=== PATIENT | male | born 1950 | race Caucasian/White ===

== ENCOUNTER → 2016-12-08 | Outpatient (CLI) | payer BC ==
[~2016-12-08] MED LIST: ASPI81TA28 PO; BNC40 PO; CHOL100010 PO; CIPR-255 PO; FSM70 PO; GLC/500 PO; HYDR-5688 PO; LPR25 PO; LPRUNK PO; OXYC7.5T65 PO; PHEN-775 PO; PRED20TA PO; WLLSR/200 PO
--- NOTE | 2016-12-08 12:53 | DIAGNOSTIC IMAGING REPORT ---
RIGHT FOOT MIN 3 VIEWS ROUTINE CLINICAL HISTORY: Right foot pain COMPARISON: None. DISCUSSION: No acute fractures are visualized. There is a tiny plantar calcaneal spur. There is a minor hallux valgus deformity. There are degenerative changes present the level the first tarsal metatarsal joint and first metatarsal phalangeal joint. Degenerative changes are also present the level of the second and third tarsometatarsal joints. IMPRESSION: 1. Degenerative changes at the first second and third tarsometatarsal joints 2. Degenerative changes at the level the first metatarsal phalangeal joint 3. No acute fractures Electronically signed by: Robert Covington M.D. 12/08/2016 12:51 PM Dictated Date/Time: 12/08/2016 12:50 PM
== END | disposition home or self-care (01) ==
LOC: C.RAD1850 12:18
PROVIDERS: ATTEND Family Medicine
DX: M79.671 Pain in right foot (principal)

== ENCOUNTER → 2017-02-27 | Outpatient (CLI) | payer BC | END | disposition home or self-care (01) | LOC: C.MAMM 10:57 | PROVIDERS: ATTEND Family Medicine | DX: M81.0 Age-related osteoporosis without current pathological fracture (principal) ==

== ENCOUNTER → 2017-04-30 | Outpatient (CLI) | payer BC ==
--- NOTE | 2017-04-30 16:39 | DIAGNOSTIC IMAGING REPORT ---
ABDOMEN AND PELVIS CT WITHOUT CONTRAST CT DOSE: 2131.80 mGy.cm HISTORY: Flank pain. TECHNIQUE: Multiaxial CT images of the abdomen and pelvis were performed without the use of intravenous and oral contrast according to the standard department stone protocol. COMPARISON STUDY: Abdomen and pelvis CT 04/09/2009. FINDINGS: Small focal linear density base of the left lower lobe. Mild dependent changes seen at the right lung base. No pneumoperitoneum. No pneumatosis. Old, healed right rib fracture. Calcifications within the left hepatic lobe, unchanged. The unenhanced spleen, gallbladder, pancreas, spleen, and adrenal glands are unremarkable. No retroperitoneal lymphadenopathy. A few subcentimeter hypodense lesions within the right kidney measures up to 5 mm. These are too small to characterize. Normal left kidney. A 12 mm stone within the right renal pelvis. No hydronephrosis. No ureteral calculi. Mild bilateral perinephric edema is likely chronic. Suboptimal evaluation for bowel pathology due to the lack of intravenous and oral contrast. However, there is no definite bowel wall thickening or obstruction. Colonic diverticulosis. Normal appendix. Questionable mild urothelial thickening within the right renal pelvis. IMPRESSION: 1. A 12 mm stone within the right renal pelvis. No hydronephrosis. No ureteral stones identified. There may be mild urothelial thickening within the right renal pelvis. Correlation with urinalysis to exclude an infectious process is recommended. 2. No definite bowel wall thickening or obstruction. 3. Colonic diverticulosis. 4. Small focal density within the base of the left lower lobe which does not have a masslike appearance. This could represent a small amount of residual atelectasis or tiny focus of inflammatory/infectious change. Electronically signed by: Kit Galloway M.D. 04/30/2017 4:37 PM Dictated Date/Time: 04/30/2017 4:31 PM
== END | disposition home or self-care (01) ==
LOC: C.CTS 15:41
PROVIDERS: ATTEND Family Medicine Adolescent Medicine
DX: R10.9 Unspecified abdominal pain (principal); N20.0 Calculus of kidney; K57.90 Diverticulosis of intestine, part unspecified, without perforation or abscess without bleeding

== ENCOUNTER → 2017-05-27 | Outpatient (CLI) | payer BC ==
--- NOTE | 2017-05-27 12:43 | DIAGNOSTIC IMAGING REPORT ---
CHEST 2 VIEWS ROUTINE CLINICAL HISTORY: N20.0 preoperative evaluation COMPARISON STUDY: 03/09/2012 FINDINGS: The bones soft tissues and hemidiaphragms are normal. The cardiomediastinal silhouette is normal. The lungs are clear. The pulmonary vasculature is normal. IMPRESSION: Negative chest. Electronically signed by: Azael Reid M.D. 05/27/2017 12:42 PM Dictated Date/Time: 05/27/2017 12:42 PM
[2017-05-27 13:17] LABS: BASO % 0.6 %; BASO ABS # 0.04 K/uL (0-0.2); COMPLETE YES; EOS % 3.5 %; HEMATOCRIT 44.9 % (42-52); IG% 0.1 %; LYMPH ABS # 1.94 K/uL (1.2-3.4); MEAN CELL VOLUME 92.8 fL (80-100); MEAN CORPUSCULAR HEMOGLOBIN 30.6 pg (25-34); MEAN PLATELET VOLUME 10.5 fL (7.4-10.4); MONO % 12.7 %; NEUT % 55.1 %; PLATELET COUNT 289 K/uL (130-400); RED BLOOD COUNT 4.84 M/uL (4.7-6.1); WHITE BLOOD COUNT 6.93 K/uL (4.8-10.8)
[2017-05-27 13:36] LABS: BLOOD UREA NITROGEN 17 mg/dl (7-18); BUN/CREATININE RATIO 20.4 (10-20); CARBON DIOXIDE 28 mmol/L (21-32); CHLORIDE 106 mmol/L (98-107); CREATININE 0.85 mg/dl (0.60-1.40); GLUCOSE 108 mg/dl (70-99); POTASSIUM 4.6 mmol/L (3.5-5.1); SODIUM 139 mmol/L (136-145)
[2017-05-27 13:41] LABS: CALCIUM 8.9 mg/dl (8.5-10.1)
== END | disposition home or self-care (01) ==
LOC: C.LAB 12:11
PROVIDERS: ATTEND Urology
DX: N20.0 Calculus of kidney (principal); Z01.818 Encounter for other preprocedural examination

== ENCOUNTER → 2017-06-04 | Outpatient (CLI) | payer BC ==
[~2017-06-04] MED LIST changes: -LPRUNK PO
--- NOTE | 2017-06-04 16:01 | DIAGNOSTIC IMAGING REPORT ---
CHEST 2 VIEWS ROUTINE CLINICAL HISTORY: N20.0 Calculus of kidney CHEST COMPARISON STUDY: 05/19/2017 FINDINGS: The cardiac and mediastinal contours remain stable. There is underlying pulmonary emphysema. There is no focal pulmonary consolidation. There is no failure. There are no pleural effusions. There are old rib fractures.[ IMPRESSION: No active disease in the chest. Electronically signed by: Robert Covington M.D. 06/04/2017 4:00 PM Dictated Date/Time: 06/04/2017 3:59 PM
--- NOTE | 2017-06-04 16:09 | DIAGNOSTIC IMAGING REPORT ---
[facility] CLINICAL HISTORY: 66 years-old Male presenting with Calculus of kidney. TECHNIQUE: Single supine view of the abdomen was obtained. COMPARISON: Correlation made to CT from 04/30/2017. FINDINGS: Vague ovoid 15 mm, consistent with previously demonstrated calculus in the right renal pelvis. Normal bowel gas pattern. No evidence of free intraperitoneal gas, pneumatosis, or portal venous gas. Osseous structures normal. IMPRESSION: 1. Stable positioning of the 15 mm calculus in the right renal pelvis.. Electronically signed by: Bill Catalan 06/04/2017 4:08 PM Dictated Date/Time: 06/04/2017 3:59 PM
== END | disposition home or self-care (01) ==
LOC: C.RAD 15:22
PROVIDERS: ATTEND Urology
DX: N20.0 Calculus of kidney (principal)

== ENCOUNTER → 2017-06-05 | Day surgery (SDC) | payer BC ==
[2017-05-27 15:09] VITALS: Ht 179.6 cm; Wt 106.8 kg
[~2017-06-05] VITALS: Ht 179.6 cm; Wt 106.8 kg
[~2017-06-05] MED LIST changes: +ATROPINE SULFATE 0.1 MG/ML 5ML SYR IV PRN; +CIPROFLOXACIN 400MG / D5W IV SCH; +DEXAMETHASONE SOD INJ 4 MG/ML VIAL IV PRN; +DEXAMETHASONE SOD INJ 4 MG/ML VIAL ONE; +EpHEDrine SULFATE 50MG/5ML SYR ONE; +EpHEDrine SULFATE INJ 50 MG/ML AMP IV PRN; +FENTANYL CITRATE INJ 50 MCG/1 ML 2 ML VIAL IV PRN; +FENTANYL CITRATE INJ 50 MCG/1 ML 2 ML VIAL ONE; +KETOROLAC TROMETHAMINE 30 MG/ML VIAL IV. PRN; +LABETALOL HCL IV 5 MG/ML 20ML IV PRN; +LACTATED RINGER'S 1000ML 1,000 ML IV SCH; +LIDOCAINE HCL 2% 2 ML VIAL (20MG/ML) ONE; +METOCLOPRAMIDE HCL INJ 5 MG/ML 2 ML VIAL IV PRN; +MIDAZOLAM HCL 1 MG/ML 2ML VIAL ONE; +MoRPHine SULFATE 10 MG/ML CARP/VIAL IV PRN; +ONDANSETRON INJ 2 MG/ML 2 ML VIAL IV PRN; +ONDANSETRON INJ 2 MG/ML 2 ML VIAL ONE; +OXYCODONE/ACETAMINOPHEN 5-325 TAB PO PRN; +PHENYLEPHRINE 100MCG/ML 5ML SYR IV PRN; +PROPOFOL IV EMULSION 10 MG/ML 20 ML VIAL IV ONE
--- NOTE | 2017-06-05 07:03 | History & Physical Bridge Note ---
H&P Re-Evaluation Bridge Note: I have examined the patient, reviewed the History & Physical and in the interval since the performance of the History & Physical I have noted the following changes of clinical significance: No changes noted
--- NOTE | 2017-06-05 08:04 | Discharge Instructions ---
Discharge Instructions Date of Service Jun 05, 2017. Admission Reason for Admission: Stones Discharge Discharge Diagnosis / Problem: R stone s/p ESWL Discharge Goals Goal(s): Improve disease control, Therapeutic intervention Activity Recommendations Activity Limitations: per Instructions/Follow-up section Lifting Limitations: no more than 25 pounds, gradually increase as tolerated ( over 3-5 days) Exercise/Sports Limitations: rest today, gradually increase as tolerated (over 3-5 days) May Resume Sexual Activity: after one week Shower/Bathe: no limitations Driving or Machine Use: resume 1 day after discharge . Instructions / Follow-Up Instructions / Follow-Up As scheduled in office with [facility] before follow-up visit Discharge Diet Recommended Diet: Regular Diet (good fluid intake) Procedures Procedures Performed: Right Extracorporeal Shock Wave Lithotripsy Pending Studies Studies pending at discharge: no Medical Emergencies . Who to Call and When: Medical Emergencies: If at any time you feel your situation is an emergency, please call 911 immediately. . Non-Emergent Contact Non-Emergency issues call your: Urologist Call Non-Emergent contact if: you have a fever, temperature is above 101, your pain is not controlled, your pain is worsening, your pain is unusual for you, your pain is concerning you, you have any medication questions . . "Provider Documentation" section prepared by David Singh. . VTE Core Measure Inpt VTE Proph given/why not?: SCD's [place] Drug Monitoring Program Search Results: patient reviewed within database, no issues identified
--- NOTE | 2017-06-05 08:05 | [facility] Post Operative Brief Note ---
Immediate Operative Summary Operative Date Jun 05, 2017. Pre-Operative Diagnosis Right Renal Calculi Post-Operative Diagnosis Same Procedure(s) Performed Right Extracorporeal Shock Wave Lithotripsy Surgeon Dr. Darshan Singh Rehab Manager Surgeon(s) None Estimated Blood Loss 0 Findings Good stone fragmentation on fluoro Specimens 0 Drains NA Anesthesia GALMA Complication(s) None Disposition Recovery Room / PACU
--- NOTE | 2017-06-05 08:09 | [facility] Operative Report ---
Operative Report Operative Date Jun 05, 2017. Pre-Operative Diagnosis Right Renal Calculi Post-Operative Diagnosis Same Procedure(s) Performed Right Extracorporeal Shock Wave Lithotripsy Surgeon Dr. Darshan Singh Section Chief Surgeon(s) None Estimated Blood Loss 0 Findings Good stone fragmentation on fluoro Specimens 0 Drains NA Anesthesia GALMA Complication(s) None Disposition Recovery Room / PACU Indications 66 yo male with a large R renal stone for ESWL. He notes he is planning on a [address] tomorrow - risk of colic and complication while traveling noted. I think it would be wiser to remain locally. Patient will take under advisement. Description of Procedure The patient was brought to the litho suite. He was correctly identified and the stone was visualized on his most recent x-rays. After the correct time out was performed the patient was positioned over the therapy head. An adequate level of anesthesia was administered. The extracorporeal shockwave lithotripsy treatment was then commenced. Please see the [facility] Management sheet for complete treatment summary. After completion of the procedure the patient was taken to the recovery room in stable condition. I attest to the content of the Intraoperative Record and any orders documented therein. Any exceptions are noted below.
[2017-06-05 08:34] VITALS: TEMP 36.4
--- NOTE | 2017-06-05 08:48 | Anesthesia Progress Nt - [facility] ---
Anesthesia Post Op Note Date & Time Jun 05, 2017 at 08:47 Vital Signs Pain Intensity: 0 Vital Signs Past 12 Hours Date Time Temp Pulse Resp B/P (MAP) Pulse Ox O2 Delivery O2 Flow Rate FiO2 06/05/17 08:34 36.4 59 16 151/90 (110) 94 Room Air 06/05/17 08:24 36.4 62 15 06/05/17 08:24 62 15 94 06/05/17 08:21 146/90 06/05/17 08:19 67 27 06/05/17 08:19 66 27 94 06/05/17 08:16 160/81 06/05/17 08:14 63 19 97 06/05/17 08:14 63 19 06/05/17 08:11 168/99 06/05/17 08:09 62 20 98 06/05/17 08:09 62 20 06/05/17 08:06 162/87 06/05/17 08:04 65 16 06/05/17 08:04 65 16 98 06/05/17 08:00 37 66 20 173/89 95 Mask 6 06/05/17 08:00 173/89 06/05/17 06:28 36.3 69 20 163/93 (116) 95 Room Air Notes Mental Status: alert / awake / arousable, participated in evaluation Pt Amnestic to Procedure: Yes Nausea / Vomiting: adequately controlled Pain: adequately controlled Airway Patency, RR, SpO2: stable & adequate BP & HR: stable & adequate Hydration State: stable & adequate Anesthetic Complications: no major complications apparent
[2017-06-05 09:12] VITALS: BP 158/90; PULSE 57; O2SAT 95
== END | disposition home or self-care (01) ==
LOC: X.SURG 06:02
PROVIDERS: ATTEND Urology
DX: N20.0 Calculus of kidney (principal)

== ENCOUNTER → 2017-06-29 | Outpatient (CLI) | payer BC ==
[~2017-06-29] MED LIST changes: -ATROPINE SULFATE 0.1 MG/ML 5ML SYR IV PRN; -CIPROFLOXACIN 400MG / D5W IV SCH; -DEXAMETHASONE SOD INJ 4 MG/ML VIAL IV PRN; -DEXAMETHASONE SOD INJ 4 MG/ML VIAL ONE; -EpHEDrine SULFATE 50MG/5ML SYR ONE; -EpHEDrine SULFATE INJ 50 MG/ML AMP IV PRN; -FENTANYL CITRATE INJ 50 MCG/1 ML 2 ML VIAL IV PRN; -FENTANYL CITRATE INJ 50 MCG/1 ML 2 ML VIAL ONE; -KETOROLAC TROMETHAMINE 30 MG/ML VIAL IV. PRN; -LABETALOL HCL IV 5 MG/ML 20ML IV PRN; -LACTATED RINGER'S 1000ML 1,000 ML IV SCH; -LIDOCAINE HCL 2% 2 ML VIAL (20MG/ML) ONE; -METOCLOPRAMIDE HCL INJ 5 MG/ML 2 ML VIAL IV PRN; -MIDAZOLAM HCL 1 MG/ML 2ML VIAL ONE; -MoRPHine SULFATE 10 MG/ML CARP/VIAL IV PRN; -ONDANSETRON INJ 2 MG/ML 2 ML VIAL IV PRN; -ONDANSETRON INJ 2 MG/ML 2 ML VIAL ONE; -OXYCODONE/ACETAMINOPHEN 5-325 TAB PO PRN; -PHENYLEPHRINE 100MCG/ML 5ML SYR IV PRN; -PROPOFOL IV EMULSION 10 MG/ML 20 ML VIAL IV ONE
--- NOTE | 2017-06-29 08:03 | DIAGNOSTIC IMAGING REPORT ---
[facility] CLINICAL HISTORY: 66 years-old Male presenting with CALCULUS OF KIDNEY. TECHNIQUE: Single supine view of the abdomen was obtained. COMPARISON: 06/04/2017. FINDINGS: Previously noted 15 mm calculus in the region of the right renal pelvis unchanged. No other calcification projects over the collecting systems or ureters. Nonobstructive bowel gas pattern. Osseous structures normal. IMPRESSION: 1. Stable positioning of the 15 mm calculus in the right renal pelvis. Electronically signed by: Bill Catalan M.D. 06/29/2017 8:02 AM Dictated Date/Time: 06/29/2017 8:00 AM
== END | disposition home or self-care (01) ==
LOC: C.RAD 07:43
PROVIDERS: ATTEND Urology
DX: N20.0 Calculus of kidney (principal)

== ENCOUNTER → 2017-07-13 | Outpatient (CLI) | payer BC ==
[~2017-07-13] MED LIST changes: -OXYC7.5T65 PO
[2017-07-13 14:40] LABS: BASO % 0.7 %; BASO ABS # 0.05 K/uL (0-0.2); COMPLETE YES; EOS % 1.9 %; HEMATOCRIT 41.7 % (42-52); IG% 0.1 %; LYMPH % 25.7 %; LYMPH ABS # 1.86 K/uL (1.2-3.4); MEAN CELL VOLUME 91.6 fL (80-100); MEAN CORPUSCULAR HEMOGLOBIN 31.4 pg (25-34); MEAN CORPUSCULAR HGB CONC 34.3 g/dl (32-36); MEAN PLATELET VOLUME 10.9 fL (7.4-10.4); MONO % 10.2 %; NEUT % 61.4 %; PLATELET COUNT 284 K/uL (130-400); RED BLOOD COUNT 4.55 M/uL (4.7-6.1); WHITE BLOOD COUNT 7.25 K/uL (4.8-10.8)
[2017-07-13 14:59] LABS: BLOOD UREA NITROGEN 16 mg/dl (7-18); BUN/CREATININE RATIO 16.1 (10-20); CALCIUM 9.2 mg/dl (8.5-10.1); CARBON DIOXIDE 28 mmol/L (21-32); CHLORIDE 101 mmol/L (98-107); GLUCOSE 140 mg/dl (70-99); POTASSIUM 4.4 mmol/L (3.5-5.1); SODIUM 135 mmol/L (136-145)
[2017-07-13 15:44] LABS: URINE APPEARANCE CLEAR (CLEAR); URINE BILIRUBIN NEG (NEG); URINE COLOR DK YELLOW; URINE NITRITE NEG (NEG); URINE PH 5.5 (4.5-7.5); URINE SPECIFIC GRAVITY 1.021 (1.000-1.030); UROBILINOGEN NEG (NEG)
[2017-07-13 15:48] LABS: MANUAL MICROSCOPIC REQUIRED? NO; REVIEW REQ? NO
== END | disposition home or self-care (01) ==
LOC: C.LAB1850 13:44
PROVIDERS: ATTEND Urology
DX: N20.0 Calculus of kidney (principal)

== ENCOUNTER 2017-07-28 12:06 | Day surgery (SDC) | payer BC ==
[2017-07-07 08:52] VITALS: BMI 34.0
[~2017-07-28] VITALS: Ht 177.8 cm; Wt 106.8 kg
[~2017-07-28 12:06] MED LIST changes: -CIPR-255 PO; +CIPROFLOXACIN / D5W 400 MG IV SCH; -FSM70 PO; -HYDR-5688 PO; +LACTATED RINGER'S 1000ML 1,000 ML IV SCH; -PHEN-775 PO; -WLLSR/200 PO
[2017-07-28] MEDS ORDERED: FSM70 PO (12:42)
[2017-07-28] MEDS ORDERED: WLLSR/200 PO (12:42)
[2017-07-28 12:49] VITALS: BP 150/72; PULSE 66; TEMP 36.4; O2SAT 94; Ht 177.8 cm; Wt 106.8 kg
[2017-07-28] MEDS ORDERED: CONRAY 30% 150ML BOTTLE ONE (12:52)
[2017-07-28] MEDS ORDERED: ONDANSETRON INJ 2 MG/ML 2 ML VIAL IV PRN (13:00)
[2017-07-28] MEDS ORDERED: ATROPINE SULFATE 0.1 MG/ML 5ML SYR IV PRN (13:00)
[2017-07-28] MEDS ORDERED: EpHEDrine SULFATE INJ 50 MG/ML AMP IV PRN (13:00)
[2017-07-28] MEDS ORDERED: HYDROmorphone INJ 1 MG/ML SYR IV PRN (13:00)
[2017-07-28] MEDS ORDERED: FENTANYL CITRATE INJ 50 MCG/1 ML 2 ML VIAL IV PRN (13:00)
[2017-07-28] MEDS ORDERED: LIDOCAINE HCL 2% 2 ML VIAL (20MG/ML) ONE (13:27)
[2017-07-28] MEDS ORDERED: ONDANSETRON INJ 2 MG/ML 2 ML VIAL ONE (13:27)
[2017-07-28] MEDS ORDERED: FENTANYL CITRATE INJ 50 MCG/1 ML 2 ML VIAL ONE ×2 (13:27→14:32)
[2017-07-28] MEDS ORDERED: DEXAMETHASONE SOD INJ 4 MG/ML VIAL ONE (13:27)
[2017-07-28] MEDS ORDERED: MIDAZOLAM HCL 1 MG/ML 2ML VIAL ONE (13:27)
[2017-07-28] MEDS ORDERED: PROPOFOL IV EMULSION 10 MG/ML 20 ML VIAL IV ONE (13:27)
[2017-07-28] MEDS ORDERED: KETOROLAC TROMETHAMINE 30 MG/ML VIAL ONE (14:55)
--- NOTE | 2017-07-28 15:07 | [facility] Operative Report ---
Operative Report Operative Date Jul 28, 2017. Pre-Operative Diagnosis Calculus of Right Kidney Post-Operative Diagnosis Calculus of Right Kidney Procedure(s) Performed Cystoscopy, Right Ureteroscopy, Laser Lithotripsy; Stent ([id number]) Surgeon Dr. Mills Tech Brazer Tester Surgeon(s) none Estimated Blood Loss 5ML Findings Large right renal calculus Specimens None per surgeon Drains [id number] stent Anesthesia Gen Complication(s) None Disposition Recovery Room / PACU (stable) Indications R renal stone - unsuccessful ESWL Description of Procedure Johny Prakash was identified in the preoperative holding area, appropriate informed consents were reviewed and completed, and the patient was transported to the operating suite. Upon arrival he received appropriate preoperative antibiotics in the form of ciprofloxacin. Adequate general anesthesia was achieved, and the patient was placed in dorsal lithotomy position where he was sterilely prepped and draped in standard fashion. I begin the case by passing a 22 [place] cystoscope with 30 lens. Inspection of the urethra revealed wide caliber bulbar urethral strictures 2. I was able to navigate these with the scope without having to dilate the strictures. Full inspection of the bladder was carried out, revealing moderate trabeculation and no evidence of mucosal disease. He was noted to have a moderately enlarged prostate with a somewhat high bladder neck. Ureteral orifices weren't orthotopic position. Following my inspection, I turned my attention to the right ureteral orifice. I intubated this with a sensor wire and a 10 [place] double-lumen catheter. The wire was advanced the kidney under fluoroscopic guidance without difficulty. I advance the 10 [place] catheter maximally prior to placing a second wire through the second channel of this catheter. I then withdrew the 10 [place] double- lumen catheter and attempted to pass a ureteral access sheath. This passage was unsuccessful with resistance felt at the UO. I tried to place the inner cannula first to redilate, however this met resistance the same location. Rather than traumatize the ureter I aborted this plan and passed a flexible ureteroscope. Under fluoroscopic guidance this passed without difficulty or resistance. Full renoscopy was carried out, revealing several prominent papillae with very small Randles plaques, and a very large renal pelvic stone. I passed a 400 laser fiber and I commenced laser lithotripsy. I sequentially fragmented the stone gradually working the way from the outside perimeter towards the central aspects. I ensured that all pieces were fragmented to sizes teams safe for spontaneous passage. I then performed a full repeat renoscopy. He had a significant amount of dust and debris but no identifiable large fragments. Before concluding the case I performed a careful exit ureteroscopy. There is no evidence of trauma to the ureter nor were there any large fragments within the ureter. I opacified the collecting system utilizing a 10 [place] double-lumen catheter over the existing safety wire confirming no extravasation or injury. Wire was positioned in the upper pole of the kidney and a utilize this wire to place a 6 [place] by 26 cm double-J ureteral stent. Decompressed the bladder and concluded the case. Patient was extubated and taken to the PACU in stable condition. I attest to the content of the Intraoperative Record and any orders documented therein. Any exceptions are noted below.
[2017-07-28] MEDS ORDERED: HYDR-5688 PO (15:08)
[2017-07-28] MEDS ORDERED: CIPR-255 PO (15:08)
[2017-07-28] MEDS ORDERED: PHEN-775 PO (15:08)
[2017-07-28] MEDS ORDERED: SODIUM CHLORIDE 0.9% 1000ML 1,000 ML IV SCH (15:10)
--- NOTE | 2017-07-28 15:10 | Discharge Instructions ---
Discharge Instructions Date of Service Jul 28, 2017. Admission Reason for Admission: Stones Discharge Discharge Diagnosis / Problem: Stones Discharge Goals Goal(s): Decrease discomfort, Improve function, Increase independence, Improve disease control, Prevent Disease Progression Activity Recommendations Activity Limitations: resume your previous activity Lifting Limitations: none Exercise/Sports Limitations: none May Resume Sexual Activity: when tolerated Shower/Bathe: no limitations Driving or Machine Use: no limitations . Instructions / Follow-Up Instructions / Follow-Up Please keep your previously scheduled follow up appointment for stent removal. Discharge Diet Recommended Diet: Regular Diet Procedures Procedures Performed: Cystoscopy, Right Ureteroscopy, Laser Lithotripsy; Stent ([id number]) Pending Studies Studies pending at discharge: no Medical Emergencies . Who to Call and When: Medical Emergencies: If at any time you feel your situation is an emergency, please call 911 immediately. . Non-Emergent Contact Non-Emergency issues call your: Urologist Call Non-Emergent contact if: you have a fever, temperature is above 101.5, your pain is not controlled, your pain is worsening . . "Provider Documentation" section prepared by Tru Gaitan. . VTE Core Measure Inpt VTE Proph given/why not?: Treatment not indicated [place] Drug Monitoring Program Search Results: patient reviewed within database, no issues identified
[2017-07-28] MEDS ORDERED: ACETAMINOPHEN 325 MG TAB PO PRN (15:15)
[2017-07-28] MEDS ORDERED: OXYCODONE/ACETAMINOPHEN 5-325 TAB PO PRN ×2 (15:15)
--- NOTE | 2017-07-28 15:43 | Anesthesiology Progress Note ---
Anesthesia Post Op Note Date & Time Jul 28, 2017 at 15:43 Vital Signs Pain Intensity: 0 Vital Signs Past 12 Hours Date Time Temp Pulse Resp B/P (MAP) Pulse Ox O2 Delivery O2 Flow Rate FiO2 07/28/17 15:35 36.4 55 15 142/79 93 Nasal Cannula 2 07/28/17 15:25 59 15 137/80 93 Nasal Cannula 2 07/28/17 15:15 62 14 142/76 96 Oxymask 8 07/28/17 15:07 36.1 66 16 115/72 97 Oxymask 8 07/28/17 12:49 36.4 66 20 150/72 (98) 94 Room Air Notes Mental Status: alert / awake / arousable, participated in evaluation Pt Amnestic to Procedure: Yes Nausea / Vomiting: adequately controlled Pain: adequately controlled Airway Patency, RR, SpO2: stable & adequate BP & HR: stable & adequate Hydration State: stable & adequate Anesthetic Complications: no major complications apparent
[2017-07-28 15:48] VITALS: BP 149/69; PULSE 58; TEMP 36.4; O2SAT 94
[2017-07-28] MEDS ORDERED: TAMSULOSIN HCL 0.4 MG CAP PO ONE (16:00)
[2017-07-28 16:20] VITALS: BP 155/76; PULSE 56; O2SAT 94
[2017-07-28 16:55] VITALS: BP 151/70; PULSE 59; TEMP 36.4; O2SAT 95
== END 2017-07-28 17:03 | disposition home or self-care (01) ==
LOC: C.ACU 12:06
PROVIDERS: ATTEND Urology
DX: N20.0 Calculus of kidney (principal); E11.9 Type 2 diabetes mellitus without complications; I10 Essential (primary) hypertension; F17.210 Nicotine dependence, cigarettes, uncomplicated; Z79.899 Other long term (current) drug therapy

== ENCOUNTER → 2017-11-04 | Outpatient (CLI) | payer BC ==
[~2017-11-04] MED LIST changes: +CIPR-255 PO; -CIPROFLOXACIN / D5W 400 MG IV SCH; +FSM70 PO; +HYDR-5688 PO; -LACTATED RINGER'S 1000ML 1,000 ML IV SCH; -PRED20TA PO; +WLLSR/200 PO
--- NOTE | 2017-11-04 10:50 | DIAGNOSTIC IMAGING REPORT ---
CHEST 2 VIEWS ROUTINE CLINICAL HISTORY: J20.8 R09.89 PERSISTENT COUGH COMPARISON STUDY: 06/04/2017 FINDINGS: The cardiac and mediastinal contours are normal. There is no evidence of focal pulmonary consolidation. There is no evidence of failure. No pleural effusions are visualized.[ IMPRESSION: No active disease in the chest. Electronically signed by: Robert Covington M.D. 11/04/2017 10:49 AM Dictated Date/Time: 11/04/2017 10:49 AM
== END | disposition home or self-care (01) ==
LOC: C.RAD1850 10:35
PROVIDERS: ATTEND Family Medicine
DX: J20.8 Acute bronchitis due to other specified organisms (principal); R09.89 Other specified symptoms and signs involving the circulatory and respiratory systems

== ENCOUNTER → 2017-12-24 | Outpatient (CLI) | payer BC ==
[2017-12-24 17:52] LABS: BLOOD UREA NITROGEN 18 mg/dl (7-18); CALCIUM 9.3 mg/dl (8.5-10.1); CARBON DIOXIDE 27 mmol/L (21-32); CREATININE 0.86 mg/dl (0.60-1.40); GLUCOSE 103 mg/dl (70-99); POTASSIUM 4.2 mmol/L (3.5-5.1); SODIUM 138 mmol/L (136-145)
[2017-12-25 06:16] LABS: HEMOGLOBIN A1C 5.8 % (4.5-5.6)
== END | disposition home or self-care (01) ==
LOC: C.LAB1850 16:33
PROVIDERS: ATTEND Family Medicine
DX: E11.9 Type 2 diabetes mellitus without complications (principal); I10 Essential (primary) hypertension

== ENCOUNTER → 2018-03-04 | Outpatient (CLI) | payer BC ==
[~2018-03-04] MED LIST changes: -HYDR-5688 PO
--- NOTE | 2018-03-04 08:39 | DIAGNOSTIC IMAGING REPORT ---
CT LUNG SCREENING, LOW DOSE WITH COMPUTER-AIDED DETECTION (CAD) CLINICAL HISTORY: Encounter for screening for lung cancer. COMPARISON STUDY: Chest radiograph November 04, 2017. CT DOSE: 97.61 mGy.cm TECHNIQUE: Low-dose helical CT was acquired without intravenous contrast from lung apices to bases and reconstructed at 2.5 mm every 2 mm. CAD was utilized for this study. A dose lowering technique was utilized adhering to the principles of ALARA. FINDINGS: No enlarged axillary, mediastinal or hilar lymph nodes are present. The heart is mildly enlarged. There is no pericardial effusion. There is extensive coronary artery calcification. No pneumothorax or pleural effusion is noted. There is no consolidation. A few calcified granulomas are noted. There are no suspicious pulmonary nodules. Bony thorax is unremarkable. A left hepatic lobe calcifications are unchanged and CT of April 30, 2017. These are benign. IMPRESSION: 1. No suspicious pulmonary nodules. Lung RADS category 1. Continue annual lung cancer screening on March 04, 2019. 2. Mild cardiomegaly and extensive coronary artery calcification. CAD FINDINGS: Overall Lung RADS Category: 1 Lung RADS Management Recommendation: Continue annual lung cancer screening. Lung RADS Follow Up Date: 2019-03-04 Electronically signed by: Celso Barnett M.D. 03/04/2018 8:07 AM Dictated Date/Time: 03/04/2018 7:42 AM
== END | disposition home or self-care (01) ==
LOC: C.CTS 07:29
PROVIDERS: ATTEND Family Medicine
DX: Z12.2 Encounter for screening for malignant neoplasm of respiratory organs (principal); F17.210 Nicotine dependence, cigarettes, uncomplicated